=== PATIENT | female | born 1970 | race Caucasian/White ===

== ENCOUNTER → 2018-12-05 | Outpatient (CLI) | payer OTHER | LOC: M.RAD 12:31 | DX: J44.9 Chronic obstructive pulmonary disease, unspecified (principal); K21.9 Gastro-esophageal reflux disease without esophagitis ==

== ENCOUNTER → 2020-12-24 | Outpatient (CLI) | payer OTHER | LOC: M.RAD 12:58 | PROVIDERS: ATTEND Registered Nurse Diabetes Educator | DX: R07.81 Pleurodynia (principal); R10.12 Left upper quadrant pain ==